=== PATIENT | male | born 1970 | race Caucasian/White ===

== ENCOUNTER 2020-03-20 14:02 | Emergency (ER) | payer OTHER ==
[~2020-03-20] VITALS: Ht 188 cm; Wt 90.0 kg
[2020-03-20 14:04] VITALS: BP 121/69
--- NOTE | 2020-03-20 14:35 | NUR ---
Pt being evaluated by provider.
[2020-03-20] MEDS ORDERED: PRED20TA PO (14:48)
[2020-03-20] MEDS ORDERED: PERM60CR19 TOP (14:48)
== END 2020-03-20 15:05 | disposition home or self-care (01) ==
LOC: ER 14:03
DX: B86 Scabies (principal); Z79.899 Other long term (current) drug therapy
CPT/HCPCS: 99283

== ENCOUNTER 2020-03-21 09:19 | Emergency (ER) | payer MEDICAID, OTHER ==
[~2020-03-21] VITALS: Ht 188 cm; Wt 77.0 kg
[~2020-03-21 09:19] MED LIST: PERM60CR19 TOP; PRED20TA PO
[2020-03-21 09:23] VITALS: BP 127/70
[2020-03-21] MEDS ORDERED: cetirizine 10mg tablet PO ONE (10:05)
[2020-03-21] MEDS ORDERED: predniSONE 20 mg tablet PO ONE (10:10)
== END 2020-03-21 10:29 | disposition home or self-care (01) ==
LOC: ER 09:19
DX: L30.9 Dermatitis, unspecified (principal); B86 Scabies; Z59.0 Homelessness; Z79.899 Other long term (current) drug therapy
CPT/HCPCS: 99283; J7512

== ENCOUNTER 2020-04-27 13:42 | Inpatient (IN) | payer MEDICAID, OTHER ==
[~2020-04-27] VITALS: Ht 190.5 cm; Wt 77.0 kg
[2020-04-27 14:50] LABS: BASOPHILS # (AUTO) 0.1 X10'3 (0-0.2); BASOPHILS % (AUTO) 0.8 % (0-1); EOSINOPHILS # (AUTO) 0.3 X10'3 (0-0.9); EOSINOPHILS % (AUTO) 4.5 % (0-6); HEMATOCRIT 42.6 % (42.0-52.0); HEMOGLOBIN 14.2 g/dl (14.0-17.9); LYMPHOCYTES # (AUTO) 1.9 X10'3 (1.1-4.8); LYMPHOCYTES % (AUTO) 26.6 % (21-51); MEAN CORPUSCULAR HEMOGLOBIN 29.9 PG (27.0-31.0); MEAN CORPUSCULAR HGB CONC 33.4 g/dL (33.0-36.5); MEAN CORPUSCULAR VOLUME 89.5 FL (78-98); MONOCYTES # (AUTO) 0.8 X10'3 (0-0.9); NEUTROPHILS # (AUTO) 4.1 X10'3 (1.8-7.7); NEUTROPHILS % (AUTO) 57.1 % (42-75); PLATELET COUNT 342 X10'3 (140-440); RED BLOOD COUNT 4.76 X10'6 (4.70-6.10); RED CELL DISTRIBUTION WIDTH 12.6 % (11.5-14.5); WHITE BLOOD COUNT 7.2 X10'3 (4.5-11.0)
[2020-04-27 15:01] LABS: ALANINE AMINOTRANSFERASE 46 U/L (12-78); ALBUMIN 3.5 G/DL (3.4-5.0); ALBUMIN/GLOBULIN RATIO 0.9 (1.1-1.5); ALKALINE PHOSPHATASE 172 IU/L (46-116); AMYLASE 48 U/L (25-115); ANION GAP 8 (8-16); ASPARTATE AMINO TRANSFERASE 22 U/L (10-37); BILIRUBIN,TOTAL 0.3 MG/DL (0.1-1.0); BLOOD UREA NITROGEN 18 MG/DL (7-18); BUN/CREATININE RATIO 20.5 (5.4-32.0); CALCIUM 8.2 MG/DL (8.5-10.1); CHLORIDE 109 MMOL/L (99-107); CREATININE 0.88 MG/DL (0.60-1.10); GLUCOSE 59 MG/DL (70-104); LIPASE 98 U/L (73-393); POTASSIUM 3.2 MMOL/L (3.5-5.1); SODIUM 143 MMOL/L (135-145); TOTAL CARBON DIOXIDE 26.1 MMOL/L (24-32); TOTAL PROTEIN 7.5 G/DL (6.4-8.2); eGFR > 90 ML/MIN
[2020-04-27] MEDS ORDERED: normal saline 1000ML IV soln IV ONE (15:20)
[2020-04-27 15:32] LABS: MAGNESIUM 2.1 MG/DL (1.5-2.4)
[2020-04-27] MEDS ORDERED: iohexol 300mg/ml 100ml inj. ONE (15:40)
[2020-04-27 16:28] LABS: C DIFF ANTIGEN NEGATIVE (NEGATIVE); C DIFF SPECIMEN=DIARRHEA? ACCEPTABLE; C DIFFICILE TOXINS A&B NEGATIVE (Neg)
[2020-04-27] MEDS ORDERED: levoFLOXACIN-Levaquin 750MG/D5 150 ML IV ONE (17:20)
[2020-04-27] MEDS ORDERED: metroNIDAZOLE-Flagyl 500mg/NS 100 ML IV ONE (17:20)
[2020-04-27] MEDS ORDERED: potassium Cl 10 mEq/100mL bag IV ONE (17:30)
[2020-04-27] MEDS ORDERED: NO HOME MEDS (17:37)
[2020-04-27] MEDS ORDERED: potassium CL 10mEq/100ml bag 100 ML IV PRN (17:45)
[2020-04-27] MEDS ORDERED: ondansetron/PF 4mg/2ml inj IV PRN (17:45)
[2020-04-27] MEDS ORDERED: mag hydrox/Alum hydrox/simeth 30ml oral suspension PO PRN (17:45)
[2020-04-27] MEDS ORDERED: diphenhydrAMINE 25mg capsule PO PRN (17:45)
[2020-04-27] MEDS ORDERED: acetaminophen 325mg tablet PO PRN ×2 (17:45)
[2020-04-27] MEDS ORDERED: acetaminophen 650mg rectal suppository RC PRN (17:45)
[2020-04-27] MEDS ORDERED: HYDROcodone/acetaminophen 10/325mg tab PO PRN (17:45)
[2020-04-27] MEDS ORDERED: morphine 2 MG/ML inj. syringe IV PRN ×2 (17:45)
[2020-04-27] MEDS ORDERED: bisacodyl 10mg suppository rectal RC PRN (17:45)
[2020-04-27] MEDS ORDERED: metoclopramide 5 mg/ml inj IV PRN (17:45)
[2020-04-27] MEDS ORDERED: magnesium hydroxide 30ml (MOM) UD suspension PO PRN (17:45)
[2020-04-27] MEDS ORDERED: HYDROcodone/acetaminophen 5mg/325mg tablet PO PRN (17:45)
[2020-04-27] MEDS ORDERED: magnesium Cl slow-release 64mg tablet PO PRN (17:45)
[2020-04-27] MEDS ORDERED: potassium Cl 20 mEq SR tablet PO PRN ×2 (17:45)
[2020-04-27] MEDS ORDERED: magnesium 4gm in 100ml NS 100 ML IV PRN (17:45)
[2020-04-27] MEDS ORDERED: magnesium 2GM in 50ml NS 50 ML IV PRN (17:45)
[2020-04-27 18:16] LABS: CLARITY,URINE CLEAR (Clear); COLOR,URINE YELLOW (Yellow); GLUCOSE, URINE NEGATIVE (Neg); KETONES,URINE NEGATIVE (Neg); LEUKOCYTE ESTERASE ,URINE NEGATIVE (Neg); NITRITES, URINE NEGATIVE (Neg); OCCULT BLOOD,URINE NEGATIVE (Neg); PROTEIN,URINE NEGATIVE (Neg); UROBILINOGEN,URINE 0.2 E.U/dL (0.2-1.0)
[2020-04-27] MEDS: normal saline 1000ml 1,000 ML IV SCH (18:17)
[2020-04-27 18:18] LABS: UA COLLECTION TYPE VOIDED
[2020-04-27 18:32] LABS: HEMOGLOBIN A1C 5.7 % (4.5-6.2)
[2020-04-27] MEDS: K and/or MAG REPLACEMENT MC SCH (19:58)
[2020-04-27] MEDS: heparin, porcine 5000 units/ml vial SQ SCH (20:00)
--- NOTE | 2020-04-27 22:14 | NUR ---
report to [facility]
[2020-04-27] MEDS: metroNIDAZOLE-Flagyl 500mg/NS 100 ML IV SCH (23:43)
[2020-04-27] MEDS: potassium CL 10mEq/100ml bag 100 ML IV PRN (23:43)
[2020-04-28] VITALS: BP 116/70
[2020-04-28] MEDS: potassium CL 10mEq/100ml bag 100 ML IV PRN ×2 (00:41→01:40)
[2020-04-28] MEDS: normal saline 1000ml 1,000 ML IV SCH ×2 (03:45→13:45)
[2020-04-28 06:46] LABS: BASOPHILS # (AUTO) 0.1 X10'3 (0-0.2); EOSINOPHILS # (AUTO) 0.5 X10'3 (0-0.9); EOSINOPHILS % (AUTO) 5.8 % (0-6); HEMATOCRIT 35.6 % (42.0-52.0); HEMOGLOBIN 12.1 g/dl (14.0-17.9); LYMPHOCYTES % (AUTO) 25.8 % (21-51); MEAN CORPUSCULAR HEMOGLOBIN 30.3 PG (27.0-31.0); MEAN CORPUSCULAR HGB CONC 33.9 g/dL (33.0-36.5); MEAN CORPUSCULAR VOLUME 89.3 FL (78-98); MEAN PLATELET VOLUME 8.5 FL (7.4-10.4); MONOCYTES # (AUTO) 0.8 X10'3 (0-0.9); MONOCYTES % (AUTO) 10.5 % (2-12); NEUTROPHILS # (AUTO) 4.4 X10'3 (1.8-7.7); NEUTROPHILS % (AUTO) 56.9 % (42-75); PLATELET COUNT 249 X10'3 (140-440); RED BLOOD COUNT 3.99 X10'6 (4.70-6.10); RED CELL DISTRIBUTION WIDTH 12.7 % (11.5-14.5); WHITE BLOOD COUNT 7.8 X10'3 (4.5-11.0)
[2020-04-28 07:04] LABS: ALANINE AMINOTRANSFERASE 40 U/L (12-78); ALBUMIN 2.7 G/DL (3.4-5.0); ALBUMIN/GLOBULIN RATIO 0.9 (1.1-1.5); ALKALINE PHOSPHATASE 134 IU/L (46-116); ANION GAP 10 (8-16); ASPARTATE AMINO TRANSFERASE 21 U/L (10-37); BILIRUBIN,TOTAL 0.2 MG/DL (0.1-1.0); BLOOD UREA NITROGEN 11 MG/DL (7-18); BUN/CREATININE RATIO 16.2 (5.4-32.0); CALCIUM 7.7 MG/DL (8.5-10.1); CHLORIDE 113 MMOL/L (99-107); CHOL/HDL RATIO 3.7 (0.00-4.99); CHOLESTEROL 85 MG/DL (0-200); CREATININE 0.68 MG/DL (0.60-1.10); GLUCOSE 93 MG/DL (70-104); HDL CHOLESTEROL 23 MG/DL (35-60); LDL CHOLESTEROL 50 MG/DL (50-100); MAGNESIUM 1.7 MG/DL (1.5-2.4); PHOSPHORUS 2.2 MG/DL (2.3-4.5); POTASSIUM 3.5 MMOL/L (3.5-5.1); SODIUM 145 MMOL/L (135-145); TOTAL CARBON DIOXIDE 22.4 MMOL/L (24-32); TOTAL PROTEIN 5.7 G/DL (6.4-8.2); TRIGLYCERIDES 58 MG/DL (20-135); eGFR > 90 ML/MIN
[2020-04-28 07:33] VITALS: BP 117/68
[2020-04-28] MEDS: K and/or MAG REPLACEMENT MC SCH (08:00)
[2020-04-28] MEDS: heparin, porcine 5000 units/ml vial SQ SCH (08:00)
[2020-04-28] MEDS ORDERED: levoFLOXACIN-Levaquin 750MG/D5 150 ML IV SCH (08:00)
[2020-04-28] MEDS: metroNIDAZOLE-Flagyl 500mg/NS 100 ML IV SCH (08:40)
[2020-04-28 12:02] LABS: URINE AMPHETAMINE SCREEN NEGATIVE (Neg); URINE BARBITUATE SCREEN NEGATIVE (Neg); URINE BENZODIAZEPINES SCREEN NEGATIVE (Neg); URINE CANNABINOID SCREEN NEGATIVE (Neg); URINE COCAINE SCREEN NEGATIVE (Neg); URINE METHADONE SCREEN NEGATIVE (Neg); URINE OPIATE SCREEN NEGATIVE (Neg); URINE PHENCYCLIDINE SCREEN NEGATIVE (Neg)
[2020-04-28 12:18] VITALS: BP 132/70
[2020-04-28] MEDS ORDERED: LACT1CAP26 PO (12:40)
[2020-04-28] MEDS ORDERED: METR-159 PO (12:40)
[2020-04-28] MEDS ORDERED: LEVO750T46 PO (12:40)
--- NOTE | 2020-04-28 15:29 | NUR ---
Patient discharged via [facility] transportation. The ride will be taking him to [facility] on [address] before dropping him off close to the house he will be going to. Patient is stable and appropriate. IV x2 removed. New prescriptions called into [facility] on [address]. Discharge instructions given and reviewed with patient, all questions answered.
== END 2020-04-28 15:30 | disposition home or self-care (01) | DRG 249 ==
LOC: ER 13:43 → ED HOLD 17:45 → SUR 3N 22:40
PROVIDERS: ADMIT Family Medicine; ATTEND Family Medicine
PROC: BW211ZZ Computerized Tomography (CT Scan) of Abdomen and Pelvis using Low Osmolar Contrast (ICD-10-PCS; principal; 2020-04-27)
DX: A09 Infectious gastroenteritis and colitis, unspecified (principal); E87.6 Hypokalemia; F15.10 Other stimulant abuse, uncomplicated; F17.210 Nicotine dependence, cigarettes, uncomplicated; R59.0 Localized enlarged lymph nodes; Z59.0 Homelessness; Z91.19 Patient's noncompliance with other medical treatment and regimen; Z71.6 Tobacco abuse counseling; Z71.51 Drug abuse counseling and surveillance of drug abuser
CPT/HCPCS: 36415; 74177; 80053; 80061; 80305; 81003; 82150; 82948; 83036; 83605; 83690; 83735; 84100; 84145; 85025; 85651; 87040; 87045; 87046; 87081; 87324; 87449; 89055; 96365; 99285; G0378; J1956; J3480; J3490; J7030; Q9967

== ENCOUNTER 2022-03-27 13:40 | Emergency (ER) | payer MEDICAID ==
[~2022-03-27] VITALS: Ht 188 cm; Wt 79.5 kg
[~2022-03-27 13:40] MED LIST changes: +LACT1CAP26 PO; -PERM60CR19 TOP; -PRED20TA PO
[2022-03-27 13:51] VITALS: BP 130/79
[2022-03-27] MEDS ORDERED: OFLO5DRO5 EACH EAR (14:58)
[2022-03-27] MEDS ORDERED: AMOX-580 PO (14:58)
== END 2022-03-27 15:41 | disposition home or self-care (01) ==
LOC: ER 13:41
DX: J06.9 Acute upper respiratory infection, unspecified (principal); H60.93 Unspecified otitis externa, bilateral; R59.0 Localized enlarged lymph nodes; Z79.2 Long term (current) use of antibiotics; Z79.899 Other long term (current) drug therapy; Z91.018 Allergy to other foods
CPT/HCPCS: 99283

== ENCOUNTER 2025-04-19 06:43 | Emergency (ER) | payer MEDICAID ==
[~2025-04-19] VITALS: Ht 188 cm; Wt 84.0 kg
[~2025-04-19 06:43] MED LIST changes: +OFLO5DRO5 EACH EAR
[2025-04-19 06:45] VITALS: BP 170/90; PULSE 92; RESP 17; TEMP 97.7; O2SAT 97
--- NOTE | 2025-04-19 07:44 | Physician Documentation ---
History of Present Illness ~ Chief Complaint: Mental Health Janellal Stated Complaint: POSSIBLE INFECTION Time Seen by MD: 07:16 Primary Medical Doctor: NONE HPI 54-year-old male presenting stating he is feeling very down and depressed. Additionally he states that he feels like he may have parasites as he often has felt things crawling on his skin. Patient has a history of depression, anxiety and other possible psychotic disorder. He states that he just to be on Elavil but has been off his medications for quite some time. He reports that he has been feeling this way for about a month. States that his dog had to be put down two weeks ago as she was very old and had worms. This has further exacerbated his sadness and he states that he has had thoughts of killing himself. Patient reports that he has been researching helium and has been thinking about inhaling helium to kill himself. Patient is also concerned that he may have parasites as well and has bought a derma scope and is frequently examined in his skin. Patient also states that he used some methamphetamines last night as he was feeling very down and thought that this would make him feel better. Also endorses hearing some voices from time to time. Medication Reconciliation Allergies: Uncoded Allergies: ALMONDS (Allergy, Mild, 03/27/22) Miscellaneous Medications Home Med List (No Home Medications), (Reported) Discontinued Medications Lactobacillus Rhamnosus (Culturelle), 1 EACH PO BID Discontinued Reason: patient no longer taking Ofloxacin (Ofloxacin), 5 DROP EACH EAR Q12H Discontinued Reason: patient no longer taking Past Medical History Past Medical History: No Pertinent History, Anxiety, Depression, Psychosis Past Surgical History: noncontributory Alcohol Use: None Drug Use: none Review of Systems All Other Systems at this time: Reviewed and Negative Physical Exam Vital Signs: Temperature: 97.7, Source: Oral, Heart Rate: 92, Respiratory Rate: 17, BP: 170/90, Pulse Oximetry: 97, Weight: 84.000 Oxygen Flow Rate: 0 Physical Exam I have reviewed the triage vitals. CONST: Well developed and well nourished. In no acute distress HENT: Head Atraumatic EYES: Pupils are equal, round and reactive to light. Normal conjunctiva NECK: Normal range of motion. Supple. CARDIO: Normal rate and regular rhythm. No murmurs, rubs, or gallops. S1, S2. PULM/CHEST: No respiratory distress. Lungs clear to auscultation. No wheeze ABD: Soft and nontender. Nondistended. Bowel sounds normal. No guarding. : Exam deferred MSK: No edema. No deformity. NEURO: Alert and oriented to person, place and time. Moving all extremities SKIN: Warm and dry. PSYCH: Depressed mood, slightly flat affect. Good eye contact. Cooperative and pleasant. Progress Progress Note Patient medically cleared for psychiatric evaluation. Results/Orders Results/Orders Orders - LORENZO HOWELL MD Covid19 Binax Poc Result Entry (04/19/25 08:40) General Nursing Order (04/19/25 ) 1799.11 (04/19/25 ) Completed Orders - LORENZO HOWELL MD Cbc/Diff (04/19/25 07:28) MG (04/19/25 07:28) Urinalysis, Cult If Indicated (04/19/25 07:28) Ethanol (04/19/25 07:28) Drug Screen, Urine (04/19/25 07:28) BMP (04/19/25 07:28) Ammonia (04/19/25 07:28) Regular Diet (04/19/25 Lunch) TSH (04/19/25 07:34) Vital Signs 04/19/25 04/19/25 04/19/25 06:45 08:40 11:25 Temp 97.7 Pulse 92 Resp 17 B/P (MAP) 170/90 Pulse Ox 97 O2 Flow Rate 0 Laboratory Tests Test 04/19/25 07:28 04/19/25 07:34 04/19/25 07:40 Urine Specimen Description Non-specified Urine Color Yellow Urine Clarity Clear Urine pH 6.0 Urine Specific Tensed >1.030 Urine Protein Negative Urine Glucose (UA) Negative Urine Ketones Negative Urine Occult Blood Negative Urine Nitrite Negative Urine Bilirubin Negative Urine Urobilinogen 0.2 Urine Leukocyte Esterase Negative Urine Culture Indicated Not ind Volume Urine Centrifuged 10 ml Urine Comment White Blood Count 9.1 Red Blood Count 4.57 L Hemoglobin 13.7 L Hematocrit 40.1 L Mean Corpuscular Volume 87.7 Mean Corpuscular Hemoglobin 30.1 Mean Corpuscular Hemoglobin Concent 34.3 Red Cell Distribution Width 13.3 Platelet Count 320 Mean Platelet Volume 8.0 Neutrophils (%) (Auto) 56.2 Lymphocytes (%) (Auto) 29.7 Monocytes (%) (Auto) 7.7 Eosinophils (%) (Auto) 5.2 Basophils (%) (Auto) 1.2 H Neutrophils # (Auto) 5.1 Lymphocytes # (Auto) 2.7 Monocytes # (Auto) 0.7 Eosinophils # (Auto) 0.5 Basophils # (Auto) 0.1 CBC Comment Sodium Level 142 Potassium Level 4.0 Chloride Level 104 Carbon Dioxide Level 29.5 Anion Gap 9 Blood Urea Nitrogen 22 H Creatinine 0.97 Estimated GFR/1.73 m2 80 BUN/Creatinine Ratio 22.7 H Glucose Level 114 H Calcium Level 8.7 Magnesium Level 2.3 Ammonia 26 Albumin 4.0 Thyroid Stimulating Hormone (TSH) 2.76 Chemistry Comments Urine Opiates Screen Negative Urine Methadone Screen Negative Urine Fentanyl Screen Positive H Urine Barbiturates Screen Negative Urine Phencyclidine Screen Negative Urine Amphetamines Screen Positive Urine Benzodiazepines Screen Negative Urine Cocaine Screen Negative Urine Cannabinoids Screen Negative Drug Screen Comment Ethyl Alcohol Level < 10 SARS-CoV-2 Antigen (Rapid) Negative Medical Decision Making Differential Diagnosis 54-year-old male presenting with bizarre thoughts and suicidal ideations. He has also been having hallucinations. Lab workup was initiated. Urine drug screen positive for fentanyl. Patient is calm and cooperative. He is now medically cleared for psychiatric evaluation. Patient was evaluated by our mental health professional. Their assessment is the patient is currently now suicidal and that his symptoms that we was having was secondary to some methamphetamine and fentanyl use yesterday. At this point in time patient feels much better. He was given resources for mental health in the community and advised to follow up with [facility]. He was given a plan as well in case he experiences any suicidal ideations and was advised to return immediately to the emergency department. At this point in time he is stable and safe for discharge home. Departure Disposition: HOME / SELF CARE / HOMELESS Impression: Primary Impression: Suicidal ideation Additional Impressions: Anxiety Depression Condition: Improved Discharge Instructions: Suicidal Feelings: How to Help Yourself Referrals: NO PRIMARY CARE PROVIDER (PCP) Signature Scribe Signature: 1 Attestation: 1 LORENZO HOWELL MD April 19, 2025 07:44
[2025-04-19 07:59] LABS: EOSINOPHILS # (AUTO) 0.5 X10'3 (0-0.9); MONOCYTES # (AUTO) 0.7 X10'3 (0-0.9)
[2025-04-19 08:00] LABS: BASOPHILS # (AUTO) 0.1 X10'3 (0-0.2); BASOPHILS % (AUTO) 1.2 % (0-1); EOSINOPHILS % (AUTO) 5.2 % (0-6); HEMATOCRIT 40.1 % (42.0-52.0); HEMOGLOBIN 13.7 g/dl (14.0-17.9); LYMPHOCYTES # (AUTO) 2.7 X10'3 (1.1-4.8); LYMPHOCYTES % (AUTO) 29.7 % (21-51); MEAN CORPUSCULAR HEMOGLOBIN 30.1 PG (27.0-31.0); MEAN CORPUSCULAR HGB CONC 34.3 g/dL (33.0-36.5); MEAN CORPUSCULAR VOLUME 87.7 FL (78-98); MONOCYTES % (AUTO) 7.7 % (2-12); NEUTROPHILS # (AUTO) 5.1 X10'3 (1.8-7.7); NEUTROPHILS % (AUTO) 56.2 % (42-75); PLATELET COUNT 320 X10'3 (140-440); RED BLOOD COUNT 4.57 X10'6 (4.70-6.10); RED CELL DISTRIBUTION WIDTH 13.3 % (11.5-14.5); WHITE BLOOD COUNT 9.1 X10'3 (4.5-11.0)
[2025-04-19 08:05] LABS: ANION GAP 9 (8-16); BLOOD UREA NITROGEN 22 MG/DL (7-18); BUN/CREATININE RATIO 22.7 (10.0-20.0); CALCIUM 8.7 MG/DL (8.5-10.1); CHLORIDE 104 MMOL/L (99-107); CREATININE 0.97 MG/DL (0.60-1.10); GLUCOSE 114 MG/DL (70-104); MAGNESIUM 2.3 MG/DL (1.5-2.4); SODIUM 142 MMOL/L (135-145); TOTAL CARBON DIOXIDE 29.5 MMOL/L (24-32); eCRCL 100 ML/MIN; eGFR 80 ML/MIN
[2025-04-19 08:14] LABS: BILIRUBIN,URINE NEGATIVE (Neg); CLARITY,URINE CLEAR (Clear); COLOR,URINE YELLOW (Yellow); GLUCOSE, URINE NEGATIVE (Neg); KETONES,URINE NEGATIVE (Neg); NITRITES, URINE NEGATIVE (Neg); OCCULT BLOOD,URINE NEGATIVE (Neg); PROTEIN,URINE NEGATIVE (Neg); UA COLLECTION TYPE NON-SPECIFIED
[2025-04-19 08:15] LABS: LEUKOCYTE ESTERASE ,URINE NEGATIVE (Neg); UROBILINOGEN,URINE 0.2 E.U/dL (0.2-1.0)
[2025-04-19 08:24] LABS: ETHANOL < 10 MG/DL (<10)
[2025-04-19] MEDS ORDERED: NO HOME MEDS (08:48)
[2025-04-19 09:05] LABS: URINE AMPHETAMINE SCREEN POSITIVE (Neg); URINE BARBITUATE SCREEN NEGATIVE (Neg); URINE BENZODIAZEPINES SCREEN NEGATIVE (Neg); URINE CANNABINOID SCREEN NEGATIVE (Neg); URINE COCAINE SCREEN NEGATIVE (Neg); URINE METHADONE SCREEN NEGATIVE (Neg); URINE OPIATE SCREEN NEGATIVE (Neg); URINE PHENCYCLIDINE SCREEN NEGATIVE (Neg)
[2025-04-19 09:55] LABS: THYROID STIMULATING HORMONE 2.76 ulU/ml (0.34-4.50)
== END 2025-04-19 11:30 | disposition home or self-care (01) ==
LOC: ER 06:46
DX: R45.851 Suicidal ideations (principal); F32.A Depression, unspecified; F41.9 Anxiety disorder, unspecified; Z20.822 Contact with and (suspected) exposure to COVID-19
CPT/HCPCS: 36415; 80048; 80305; 80320; 81003; 82140; 83735; 84443; 85025; 87811; 99284